=== PATIENT | female | born 1935 | race Caucasian/White ===

== ENCOUNTER 2022-02-07 10:09 | Emergency (ER) | payer MEDICARE | END 2022-02-07 13:35 | disposition home or self-care (01) | LOC: DL.ED 10:09 | DX: S00.03XA Contusion of scalp, initial encounter (principal); S80.02XA Contusion of left knee, initial encounter; M79.661 Pain in right lower leg; I10 Essential (primary) hypertension; F17.210 Nicotine dependence, cigarettes, uncomplicated; Z79.82 Long term (current) use of aspirin; Z79.899 Other long term (current) drug therapy; W01.0XXA Fall on same level from slipping, tripping and stumbling without subsequent striking against object, initial encounter; Y92.009 Unspecified place in unspecified non-institutional (private) residence as the place of occurrence of the external cause | CPT/HCPCS: 70450; 73562-LT; 93971; 99284 ==

== ENCOUNTER 2022-07-23 20:17 | Emergency (ER) | payer MEDICARE | END 2022-07-23 21:05 | disposition home or self-care (01) | LOC: DL.ED 20:17 | DX: Z04.3 Encounter for examination and observation following other accident (principal); I11.0 Hypertensive heart disease with heart failure; I50.9 Heart failure, unspecified; E78.00 Pure hypercholesterolemia, unspecified; Z72.0 Tobacco use; Z79.82 Long term (current) use of aspirin; Z79.899 Other long term (current) drug therapy | CPT/HCPCS: 99282; 99283 ==

== ENCOUNTER 2022-07-31 09:30 | Emergency (ER) | payer MEDICARE ==
[2022-07-31] MEDS: Metoprolol Tartrate 5 MG/5 ML SDV IVPUSH ONE ×2 (10:27→13:29)
[2022-07-31 10:38] LABS: PTT,PARTIAL THROMBOPLSTIN TIME 22.9 SEC (22.0-34.0)
[2022-07-31 10:53] LABS: O2 DELIVERY DEVICE NASAL CANNULA
[2022-07-31 10:55] LABS: PH,VENOUS 7.51 (7.31-7.41)
[2022-07-31 10:56] LABS: BASE EXCESS VENOUS 20 mmol/l ((-2)-(+3)); BICARBONATE,VENOUS 43 mmol/l (19-25); O2 SATURATION VENOUS 54 % (60-80); PO2 VENOUS 27 mmHg (35-42)
[2022-07-31 10:57] LABS: PCO2 VENOUS 53 mmHg (41-51)
[2022-07-31 10:59] LABS: CORONAVIRUS COVID-19 NAA NEGATIVE (NEGATIVE); RESPIRATORY SYNCYTIAL VIR NAA NEGATIVE (NEGATIVE)
[2022-07-31 11:03] LABS: ANION GAP 11.9 mEq/L (7-13)
[2022-07-31] MEDS: cefTRIAXone 1 GM Vial IVPUSH ONE (11:47)
[2022-07-31] MEDS ORDERED: Flumazenil 0.1 MG/ML 5 ML MDV IVPUSH PRN (11:51)
[2022-07-31] MEDS: LORazepam 2 MG/ML SDV IVPUSH ONE (11:55)
[2022-07-31] MEDS: Potassium Chloride 20 MEQ in Premix Bag 1 BAG IV ONE ×2 (12:01→14:59)
[2022-07-31] MEDS: Sodium Chloride 0.9% 1,000 ML IV ONE (12:04)
[2022-07-31] MEDS: Iopamidol 755 Mg/ML 100 ML Bottle IVPUSH ONE (13:02)
[2022-07-31] MEDS: methylPREDNISolone Sodium Succinate 125 MG/2 ML SDV IVPUSH ONE (13:07)
[2022-07-31 13:39] LABS: O2 DELIVERY DEVICE BIPAP
[2022-07-31 13:50] LABS: BASE EXCESS VENOUS 12 mmol/l ((-2)-(+3)); BICARBONATE,VENOUS 36 mmol/l (19-25); O2 SATURATION VENOUS 53 % (60-80); PCO2 VENOUS 59 mmHg (41-51); PH,VENOUS 7.39 (7.31-7.41); PO2 VENOUS 29 mmHg (35-42)
[2022-07-31] MEDS: Midazolam 1 MG/ML 2 ML SDV IVPUSH ONE (14:54)
[2022-07-31] MEDS: fentaNYL 100 MCG/2 ML SDV IVPUSH ONE (14:54)
[2022-07-31] MEDS ORDERED: SODIUM CHLORIDE 0.9% IV SCH (15:00)
[2022-07-31] MEDS ORDERED: FENTANYL IV SCH (15:00)
[2022-07-31] MEDS ORDERED: MIDAZOLAM IV SCH (15:00)
[2022-07-31] MEDS: Potassium Chloride 100 ML ONE (15:10)
[2022-07-31] MEDS: fentaNYL 100 MCG/2 ML SDV ONE (16:36)
[2022-07-31] MEDS: Midazolam 1 MG/ML 2 ML SDV ONE (16:37)
== END 2022-07-31 16:00 ==
LOC: DL.ED 09:30
DX: J18.9 Pneumonia, unspecified organism (principal); J96.02 Acute respiratory failure with hypercapnia; J90 Pleural effusion, not elsewhere classified; J98.09 Other diseases of bronchus, not elsewhere classified; I48.91 Unspecified atrial fibrillation; R77.8 Other specified abnormalities of plasma proteins; E87.6 Hypokalemia; E87.20 Acidosis, unspecified; I11.0 Hypertensive heart disease with heart failure; I50.9 Heart failure, unspecified; R91.8 Other nonspecific abnormal finding of lung field; E78.5 Hyperlipidemia, unspecified; E11.9 Type 2 diabetes mellitus without complications; Z79.82 Long term (current) use of aspirin; Z79.899 Other long term (current) drug therapy; Z20.822 Contact with and (suspected) exposure to COVID-19
CPT/HCPCS: 0241U; 36415; 71045; 71260; 80053; 81001; 82150; 82803; 83605; 83690; 83735; 83880; 84443; 84484; 85025; 85379; 85610; 85730; 86140; 93005; 93010; 94660; 96365; 96366; 96375; 96376; 99285; 99285-25; J0696; J2060; J2250; J2930; J3010; J3480; J3490; J7030; Q9967